=== PATIENT | female | born 1955 | race Two or more races ===

== ENCOUNTER 2019-05-08 11:02 | Inpatient (IN) | payer MEDICAID ==
[~2019-05-08] VITALS: Ht 152.4 cm; Wt 82.7 kg
[2019-05-08] MEDS ORDERED: ALBUTEROL (0.083%) 2.5MG/3ML NEB HHN STA (11:45)
[2019-05-08] MEDS ORDERED: SODIUM CHLORIDE 0.9% 1000ML BAG (SEPSIS BOLUS) IV ONE (11:45)
[2019-05-08] MEDS ORDERED: IPRATROPIUM BROMIDE (0.02%) 0.5MG/2.5ML NEB HHN STA (11:45)
[2019-05-08] MEDS ORDERED: METHYLPREDNISOLONE SOD SUCC 125 MG/2 ML VIAL IV STA (11:45)
[2019-05-08 12:16] LABS: BG BASE EXCESS 6.4 mmol/L (-2.0-2.0); BG DEOXYHEMOGLOBIN 17.8 % (0.0-5.0); BG FRACTION INSPIRED OXYGEN 40; BG HCO3 ACT 33.7 mmol/L (22.0-26.0); BG METHEMOGLOBIN 0.3 % (0.0-1.5); BG OXYHEMOGLOBIN 80.9 % (94.0-97.0); BG PCO2 60.4 mmHg (35.0-45.0); BG PH 7.364 (7.350-7.450); BG PO2 48.7 mmHg (75.0-100.0); BG SAMPLE SITE RIGHT BRACHIAL; BG TOTAL HEMOGLOBIN 13.2 g/dL (12.0-18.0); BG VENT MODE MASK - SIMPLE
[2019-05-08 12:57] LABS: BASOPHILS % 0.5 % (0.0-2.0); EOSINOPHILS % 0.7 % (0.0-5.0); HEMATOCRIT. 39.7 % (36.0-48.0); LYMPHOCYTES % 15.6 % (20.0-50.0); MEAN CORPUSCULAR HEMOGLOBIN 30.9 pg (28.0-32.0); MEAN CORPUSCULAR VOLUME 94.3 fL (81.0-99.0); MEAN PLATELET VOLUME 8.3 fl (7.4-10.4); MONOCYTES % 4.3 % (2.0-8.0); NEUTROPHILS % 78.9 % (40.0-76.0); PLATELET 361 x1000/uL (130-400); RED BLOOD CELL COUNT 4.21 mill/uL (4.2-5.4); RED CELL DISTRIBUTION WIDTH 14.7 % (11.6-14.6)
[2019-05-08 13:01] LABS: CHLORIDE 101 mEq/L (98-107)
[2019-05-08 13:03] LABS: D-DIMER 2.33 mg/L FEU (<0.50); PROTHROMBIN TIME 10.7 sec (9.6-11.0)
[2019-05-08 17:47] VITALS: BP 133/88
[2019-05-08 17:53] VITALS: BP 133/88
[2019-05-08] MEDS ORDERED: ACETAMINOPHEN 325MG TABLET PO PRN (18:30)
[2019-05-08] MEDS ORDERED: DOCUSATE SODIUM 100MG CAPSULE PO PRN (18:30)
[2019-05-08] MEDS ORDERED: ONDANSETRON HCL 4MG/2ML INJ IV PRN (18:30)
[2019-05-08] MEDS ORDERED: HYDROCODONE/ACETAMINOPHEN 5/325MG TABLET PO PRN (18:30)
[2019-05-08] MEDS ORDERED: DIPHENHYDRAMINE 50MG/ML VIAL IV PRN (18:30)
[2019-05-08] MEDS ORDERED: GUAIFENESIN 200MG/10ML SUGAR FREE UDC PO PRN (18:30)
[2019-05-08] MEDS ORDERED: MAGNESIUM/ALUMINUM HYDROXIDE/SIMETHICONE 30ML UDC PO PRN (18:30)
[2019-05-08 19:46] LABS: PHOSPHORUS 3.5 mg/dL (2.5-4.9)
[2019-05-08] MEDS ORDERED: IOHEXOL-350 100 ML BOTTLE ONE (19:50)
[2019-05-08 20:00] VITALS: BP 143/84
[2019-05-08] MEDS: FUROSEMIDE 40MG/4ML VIAL IV SCH (20:33)
[2019-05-08] MEDS: ENOXAPARIN 30MG/0.3ML SYR SUBCUT SCH (20:35)
[2019-05-08] MEDS: IPRATROPIUM/ALBUTEROL 0.5-3(2.5)MG/3ML NEB HHN PRN (21:29)
[2019-05-08 22:00] VITALS: BP 147/70
[2019-05-09] VITALS (12 sets, daily range): BP systolic 99–159; BP diastolic 59–103
[2019-05-09] MEDS: IPRATROPIUM/ALBUTEROL 0.5-3(2.5)MG/3ML NEB HHN PRN ×2 (04:50→07:33)
[2019-05-09 05:46] LABS: CLARITY URINE CLEAR (CLEAR); COLOR URINE YELLOW (YELLOW); KETONES URINE NEGATIVE (NEGATIVE); LEUKOCYTE ESTERASE URINE 2+ (NEGATIVE); NITRITE URINE NEGATIVE (NEGATIVE); OCCULT BLOOD URINE NEGATIVE (NEGATIVE); PH URINE 5.5 (4.5-8.0); PROTEIN URINE NEGATIVE (NEGATIVE); SPECIFIC GRAVITY URINE 1.019 (1.005-1.030); UROBILINOGEN URINE 0.2 E.U./dL (0.2-1.0)
[2019-05-09 05:50] LABS: BASOPHILS % 0.3 % (0.0-2.0); HEMATOCRIT. 35.9 % (36.0-48.0); HEMOGLOBIN. 11.9 g/dL (12.0-16.0); LYMPHOCYTES % 10.8 % (20.0-50.0); MEAN CORPUSCULAR HEMOGLOBIN 30.9 pg (28.0-32.0); MEAN CORPUSCULAR VOLUME 93.5 fL (81.0-99.0); MEAN PLATELET VOLUME 8.2 fl (7.4-10.4); MONOCYTES % 5.3 % (2.0-8.0); NEUTROPHILS % 83.6 % (40.0-76.0); PLATELET 351 x1000/uL (130-400); RED BLOOD CELL COUNT 3.85 mill/uL (4.2-5.4); RED CELL DISTRIBUTION WIDTH 14.6 % (11.6-14.6)
[2019-05-09 05:52] LABS: CHLORIDE 102 mEq/L (98-107)
[2019-05-09 06:06] LABS: LDL CHOLESTEROL 80 mg/dL (5-100)
[2019-05-09 06:10] LABS: HDL CHOLESTEROL 58 mg/dL (40-59)
[2019-05-09] MEDS: FUROSEMIDE 40MG/4ML VIAL IV SCH (09:03)
[2019-05-09] MEDS: ENOXAPARIN 30MG/0.3ML SYR SUBCUT SCH ×2 (09:03→22:27)
[2019-05-09] MEDS: AMLODIPINE 2.5MG TABLET PO SCH ×2 (10:40→22:27)
[2019-05-09] MEDS: IPRATROPIUM/ALBUTEROL 0.5-3(2.5)MG/3ML NEB HHN SCH ×4 (11:22→23:55)
[2019-05-09] MEDS: METHYLPREDNISOLONE SOD SUCC 40 MG/ML VIAL IV SCH ×2 (12:00→22:27)
[2019-05-09 14:04] LABS: BG BASE EXCESS 8.2 mmol/L (-2.0-2.0); BG BILEVEL POS AIRWAY PRESSURE 15/5; BG CARBOXYHEMOGLOBIN 0.7 % (0.5-1.5); BG DEOXYHEMOGLOBIN 6.8 % (0.0-5.0); BG FRACTION INSPIRED OXYGEN 40; BG HCO3 ACT 34.5 mmol/L (22.0-26.0); BG METHEMOGLOBIN 0.3 % (0.0-1.5); BG OXYGEN SATURATION 93.1 % (92.0-98.5); BG OXYHEMOGLOBIN 92.2 % (94.0-97.0); BG PCO2 55.4 mmHg (35.0-45.0); BG PH 7.412 (7.350-7.450); BG PO2 66.6 mmHg (75.0-100.0); BG SAMPLE SITE LEFT BRACHIAL; BG TOTAL HEMOGLOBIN 12.9 g/dL (12.0-18.0); BG VENT MODE MASK - BIPAP; BG VENT RATE 14 set
[2019-05-09] MEDS: CEFTRIAXONE 1 G PREMIX 50 ML IV SCH (15:19)
[2019-05-09] MEDS: CLONIDINE 0.1MG TABLET PO PRN (15:25)
[2019-05-09] MEDS: BUDESONIDE 0.5MG/2ML NEB HHN SCH (19:45)
[2019-05-09] MEDS: NITROGLYCERIN 0.4MG TABLET SL SL PRN (23:39)
[2019-05-10] VITALS (12 sets, daily range): BP systolic 122–160; BP diastolic 58–126
[2019-05-10] MEDS: IPRATROPIUM/ALBUTEROL 0.5-3(2.5)MG/3ML NEB HHN SCH ×4 (03:37→21:28)
[2019-05-10] MEDS: METHYLPREDNISOLONE SOD SUCC 40 MG/ML VIAL IV SCH ×3 (05:47→21:20)
[2019-05-10 08:06] LABS: *AMPHETAMINES SCREEN URINE NEGATIVE (NEGATIVE); *BARBITURATES SCREEN URINE NEGATIVE (NEGATIVE); *COCAINE SCREEN URINE NEGATIVE (NEGATIVE)
[2019-05-10 08:07] LABS: *BENZODIAZEPINES SCREEN URINE PRESUMTIVE POSITIVE (NEGATIVE); CANNABINOID URINE SCREEN NEGATIVE (NEGATIVE); METHADONE URINE SCREEN NEGATIVE (NEGATIVE); OPIATES URINE SCREEN NEGATIVE (NEGATIVE); PHENCYCLIDINE URINE SCREEN NEGATIVE (NEGATIVE)
[2019-05-10 08:18] LABS: HEMATOCRIT. 37.3 % (36.0-48.0); HEMOGLOBIN. 12.1 g/dL (12.0-16.0); MEAN CORPUSCULAR HEMOGLOBIN 30.6 pg (28.0-32.0); MEAN CORPUSCULAR VOLUME 94.3 fL (81.0-99.0); MEAN PLATELET VOLUME 8.3 fl (7.4-10.4); PLATELET 387 x1000/uL (130-400); RED BLOOD CELL COUNT 3.96 mill/uL (4.2-5.4); RED CELL DISTRIBUTION WIDTH 15.2 % (11.6-14.6)
[2019-05-10] MEDS: FUROSEMIDE 40MG/4ML VIAL IV SCH (09:13)
[2019-05-10] MEDS: ENOXAPARIN 30MG/0.3ML SYR SUBCUT SCH (09:15)
[2019-05-10] MEDS: AMLODIPINE 2.5MG TABLET PO SCH ×2 (09:21→21:19)
[2019-05-10 10:13] LABS: NUCLEATED RED BLOOD CELLS 1 /100 WBC; PLATELET ESTIMATE NORMAL
[2019-05-10] MEDS: CEFTRIAXONE 1 G PREMIX 50 ML IV SCH (15:28)
[2019-05-10] MEDS ORDERED: TERBUTALINE SULFATE 1MG/ML VIAL SUBCUT NR (15:45)
[2019-05-10] MEDS: CLONIDINE 0.1MG TABLET PO PRN (18:17)
[2019-05-10] MEDS: BUDESONIDE 0.5MG/2ML NEB HHN SCH (21:28)
[2019-05-11] VITALS (12 sets, daily range): BP systolic 98–179; BP diastolic 51–119
[2019-05-11] MEDS: IPRATROPIUM/ALBUTEROL 0.5-3(2.5)MG/3ML NEB HHN SCH ×6 (00:21→20:45)
[2019-05-11] MEDS: METHYLPREDNISOLONE SOD SUCC 40 MG/ML VIAL IV SCH ×3 (03:15→20:43)
[2019-05-11 06:55] LABS: HEMATOCRIT. 38.5 % (36.0-48.0); HEMOGLOBIN. 12.4 g/dL (12.0-16.0); MEAN CORPUSCULAR HEMOGLOBIN 30.4 pg (28.0-32.0); MEAN PLATELET VOLUME 8.2 fl (7.4-10.4); PLATELET 385 x1000/uL (130-400); RED BLOOD CELL COUNT 4.09 mill/uL (4.2-5.4); RED CELL DISTRIBUTION WIDTH 15.4 % (11.6-14.6)
[2019-05-11] MEDS: BUDESONIDE 0.5MG/2ML NEB HHN SCH ×2 (08:10→20:45)
[2019-05-11] MEDS: FUROSEMIDE 40MG/4ML VIAL IV SCH (08:22)
[2019-05-11] MEDS: ENOXAPARIN 40MG/0.4ML SYR SUBCUT SCH (08:22)
[2019-05-11] MEDS: AMLODIPINE 2.5MG TABLET PO SCH ×2 (08:22→20:43)
[2019-05-11] MEDS: CEFTRIAXONE 1 G PREMIX 50 ML IV SCH (14:57)
[2019-05-11] MEDS: NITROGLYCERIN 0.4MG TABLET SL SL PRN (16:19)
[2019-05-11 16:46] LABS: PLATELET ESTIMATE NORMAL
[2019-05-12] VITALS (11 sets, daily range): BP systolic 132–180; BP diastolic 71–108
[2019-05-12] MEDS: IPRATROPIUM/ALBUTEROL 0.5-3(2.5)MG/3ML NEB HHN SCH ×5 (00:50→16:13)
[2019-05-12] MEDS: METHYLPREDNISOLONE SOD SUCC 40 MG/ML VIAL IV SCH (04:50)
[2019-05-12 06:41] LABS: HEMATOCRIT. 37.7 % (36.0-48.0); HEMOGLOBIN. 12.3 g/dL (12.0-16.0); MEAN CORPUSCULAR HEMOGLOBIN 30.7 pg (28.0-32.0); MEAN CORPUSCULAR VOLUME 94.2 fL (81.0-99.0); MEAN PLATELET VOLUME 8.4 fl (7.4-10.4); PLATELET 388 x1000/uL (130-400); RED CELL DISTRIBUTION WIDTH 15.6 % (11.6-14.6)
[2019-05-12] MEDS: BUDESONIDE 0.5MG/2ML NEB HHN SCH (08:10)
[2019-05-12] MEDS: ENOXAPARIN 40MG/0.4ML SYR SUBCUT SCH (08:53)
[2019-05-12] MEDS: FUROSEMIDE 40MG/4ML VIAL IV SCH (08:53)
[2019-05-12] MEDS: AMLODIPINE 2.5MG TABLET PO SCH (08:53)
[2019-05-12] MEDS ORDERED: PANT40TA4 MT (15:44)
[2019-05-12] MEDS ORDERED: DEXTL PO (15:44)
[2019-05-12] MEDS ORDERED: P20 MT (15:44)
[2019-05-12] MEDS ORDERED: AMLO2.5T45 PO ×2 (15:44→15:45)
[2019-05-12] MEDS ORDERED: LEVO500T89 MT (15:44)
[2019-05-12] MEDS ORDERED: ALBU18HF2 IH (15:44)
[2019-05-12] MEDS: CEFTRIAXONE 1 G PREMIX 50 ML IV SCH (15:59)
[2019-05-12] MEDS: CLONIDINE 0.1MG TABLET PO PRN (17:33)
[2019-05-12] MEDS ORDERED: PREDNISONE 20MG TABLET PO SCH (18:00)
[2019-05-12 21:05] LABS: PLATELET ESTIMATE NORMAL
== END 2019-05-12 18:43 | disposition home or self-care (01) | DRG 140 ==
LOC: ER 11:02 → 5EST 15:32 → EDBEDREQTM 15:37 → EDBEDREQ 15:37 → ENRESERV 16:06
PROVIDERS: ADMIT Internal Medicine; ATTEND Internal Medicine
PROC: 5A09357 Assistance with Respiratory Ventilation, Less than 24 Consecutive Hours, Continuous Positive Airway Pressure (ICD-10-PCS; 2019-05-09)
PROC: 5A09357 Assistance with Respiratory Ventilation, Less than 24 Consecutive Hours, Continuous Positive Airway Pressure (ICD-10-PCS; 2019-05-10)
PROC: 5A09357 Assistance with Respiratory Ventilation, Less than 24 Consecutive Hours, Continuous Positive Airway Pressure (ICD-10-PCS; principal; 2019-05-11)
DX: J44.1 Chronic obstructive pulmonary disease with (acute) exacerbation (principal); J96.01 Acute respiratory failure with hypoxia; I50.43 Acute on chronic combined systolic (congestive) and diastolic (congestive) heart failure; I27.20 Pulmonary hypertension, unspecified; N17.9 Acute kidney failure, unspecified; E87.2 Acidosis; I13.0 Hypertensive heart and chronic kidney disease with heart failure and stage 1 through stage 4 chronic kidney disease, or unspecified chronic kidney disease; N18.9 Chronic kidney disease, unspecified; T50.2X5A Adverse effect of carbonic-anhydrase inhibitors, benzothiadiazides and other diuretics, initial encounter; N39.0 Urinary tract infection, site not specified; E66.9 Obesity, unspecified; E78.5 Hyperlipidemia, unspecified; Z87.01 Personal history of pneumonia (recurrent); Z87.891 Personal history of nicotine dependence; Z99.81 Dependence on supplemental oxygen; Y92.89 Other specified places as the place of occurrence of the external cause; Z68.35 Body mass index [BMI] 35.0-35.9, adult
CPT/HCPCS: 36415; 36600; 71045; 71275; 80048; 80061; 80305; 81003; 82375; 82805; 83605; 83735; 83880; 84100; 84145; 84443; 85379; 87804; 93005; 93306; 93970; 94640; 94644; 94660; 96374; 97110; 97116; 97163; 97535; 99285; J0696; J1650; J1940; J2920; J2930; J3105; J7030; J7512; J7611; J7620; J7626; Q9967